=== PATIENT | male | born 1980 | race Caucasian/White ===

== ENCOUNTER → 2019-06-28 | Outpatient (CLI) | payer BC ==
[~2019-06-28] MED LIST: ACET325 PO; COLCRYS0.6 MG PO; CYCL10 PO; DIAZ5 PO; HYDACE5 PO; HYDACE7.5 PO; Indomethacin50 MG PO; NAPR500 PO; OXYACE5T PO; Percocet 5-3251 EACH PO; RXHYDACE PO; RXOXYACE PO
[2019-06-28 13:04] LABS: BASOPHILS ABSOLUTE AUTO 0.06 K/mm3 (0.00-0.23); BASOPHILS PERCENT AUTO 1 % (0-2); EOSINOPHILS ABSOLUTE AUTO 0.16 K/mm3 (0.00-0.68); EOSINOPHILS PERCENT AUTO 2 % (0-6); Hematocrit 43.5 % (37.0-53.0); Hemoglobin 14.6 g/dL (13.5-17.5); IMMATURE GRAN ABSOLUTE AUTO 0.02 K/mm3 (0.00-0.10); IMMATURE GRAN PERCENT AUTO 0 % (0-1); LYMPHOCYTES ABSOLUTE AUTO 2.04 K/mm3 (0.84-5.20); LYMPHOCYTES PERCENT AUTO 30 % (21-46); MONOCYTES ABSOLUTE AUTO 0.68 K/mm3 (0.16-1.47); MONOCYTES PERCENT AUTO 10 % (4-13); Mean Corpuscular HGB 29.6 pg (26.0-34.0); Mean Corpuscular HGB Conc 33.6 g/dL (31.5-36.5); Mean Corpuscular Volume 88 fL (80-100); Mean Platelet Volume 10.5 fL (9.1-12.4); NEUTROPHILS ABSOLUTE AUTO 3.87 K/mm3 (1.96-9.15); NEUTROPHILS PERCENT AUTO 57 % (41-73); Platelet Count 200 K/mm3 (150-400); RDW Coefficient Variation 12.8 % (11.7-14.2); RDW Standard Deviation 41.1 fL (35.1-46.3); Red Blood Cell Count 4.93 M/mm3 (4.30-5.90); White Blood Cell Count 6.83 K/mm3 (4.00-11.30)
[2019-06-28 13:16] LABS: Alanine Aminotransfer (ALT/SGP 33 U/L (12-78); Albumin, Blood 3.6 g/dL (3.4-5.0); Albumin/Globulin Ratio 0.9 (0.8-1.8); Alk Phos 78 U/L (40-126); Anion Gap 11 mmol/L (6-16); Aspartate Aminotrans (AST/SGOT 26 U/L (12-37); Blood Urea Nitrogen 12 mg/dL (8-24); Bun/Creatinine Ratio 11.2 (12.0-20.0); CO2, Blood 25 mmol/L (21-32); Calcium, Blood 8.8 mg/dL (8.5-10.1); Chloride, Blood 107 mmol/L (98-108); Creatinine, Blood 1.07 mg/dL (0.60-1.20); Globulin, Blood 4.1 g/dL (2.2-4.0); Glomerular Filtration Rate >60 (60-); Glucose, Blood 111 mg/dL (70-99); Potassium, Blood 4.1 mmol/L (3.5-5.5); Sodium, Blood 143 mmol/L (136-145); Total Protein, Blood 7.7 g/dL (6.4-8.2)
== END | disposition home or self-care (01) ==
LOC: LAB EV 13:01 → LAB SHORT 13:01
PROVIDERS: Physician Assistant
DX: R03.0 Elevated blood-pressure reading, without diagnosis of hypertension (principal)
CPT/HCPCS: 80053; 85025

== ENCOUNTER 2023-08-01 15:16 | Inpatient (IN) | payer BC ==
[~2023-08-01] VITALS: Ht 185.4 cm; Wt 119.2 kg
[~2023-08-01 15:16] MED LIST changes: -IBUP200 PO
[2023-08-01] MEDS ORDERED: IBUP200 PO (15:29)
[2023-08-01 16:59] LABS: Anti-Xa UFH, PHA Monitoring <0.10 IU/mL; International Normalized Ratio 0.98; Prothrombin Time Results 10.3 Sec (9.7-11.5)
--- NOTE | 2023-08-01 18:15 | NUR ---
ARRIVAL TO PCU: Report recieved from Lety BROOKE RN. Patient arrived to PCU 02 via gurney and was able to ambulate to the bathroom IND. He is alert and oriented x4. He denies CP or Pressure at this time. HRR, SR in the 60s. His blood pressure is elevated 160s/100s, 10mg Hydralazine IV given at this time. LS CTA , Biox WNL on RA. BT+. PPP. Patient C/O SWIFT, given Fentanyl 25 mcg IV at this time. Patient denies other needs at this time. Call light in reach.
--- NOTE | 2023-08-01 19:32 | NUR ---
Report given to Moisés lambert RN.
[2023-08-01 20:49] VITALS: BP 165/98
[2023-08-02] VITALS (15 sets, daily range): BP systolic 61–171; BP diastolic 57–106
--- NOTE | 2023-08-02 00:42 | NUR ---
PT ALERT AND ORIENTED X 4, COOPERATIVE WITH CARE AND ABLE TO MAKE NEEDS KNOWN. ON RA AND MAINTAINING 02 SATURATION ABOVE 92%. PT DENIES SOB. HR SR 60'S-70'S, PT HAS DENIED CHEST PAIN/PRESSURE/DIZZINESS ENTIRE SHIFT SO FAR. NO EDEMA PRESENT. ALL PULSES PRESENT AND STRONG. PT USES URINAL INDEPENDENTLY. PT WAS EDUCATED ON CALLING BEFORE GETTING UP HE IS ON A HEPARIN DRIP AND FALL RISK DUE TO CORDS/LINES, PT STATED UNDERSTANDING. PT HAS REPORTED HEADACHE THIS SHIFT AND MEDICATED PER EMAR, PT WAS ADMINISTERED NITROGLYCERIN IN ER. BP ELEVATED, PT HAS HX OF ELEVATED BP, MEDICATED PER EMAR, MD AWARE OF ELEVATED BP. TROPONIN LEVELS HAVE BEEN TRENDING UP SINCE ADMISSION, TROPONIN LEVELS DRAWN EVERY 2 HOURS, MD NOTIFIED OF EACH RESULT. PT IS RESTING IN BED WITH LIGHTS AND TV OFF, CALL LIGHT WITHIN REACH.
[2023-08-02 05:20] LABS: Hematocrit 45.8 % (37.0-53.0); Hemoglobin 15.3 g/dL (13.5-17.5); Mean Platelet Volume 10.6 fL (9.1-12.4); Platelet Count 177 K/mm3 (150-400)
[2023-08-02 06:01] LABS: CHOL/HDL RATIO 6.4; Cholesterol 193 mg/dL (50-200); HDL Cholesterol 30 mg/dL (>39); LDL/HDL RATIO 3.7; Low Density Lipoprotein Chol 110 mg/dL (0-110); Triglycerides 267 mg/dL (30-160); Very Low Density Lipoprot Chol 53 mg/dL (6-32)
--- NOTE | 2023-08-02 06:42 | NUR ---
SHIFT SUMMARY PT CONTINUES TO BE ALERT AND ORIENTED X 4, COOPERATIVE WITH CARE AND ABLE TO MAKE NEEDS KNOWN. PT STILL ON RA AND MAINTAINING 02 SATURATION ABOVE 92%, HE HAS DENIED SOB ALL SHIFT. HR SR 70'S, BP ELEVATED AND MEDICATED PER EMAR, MD AWARE OF ELEVATED BP, PT HAS DENIED CHEST PAIN/PRESSURE/DIZZINESS ALL SHIFT. PT HAS HAD A HEADACHE ALL SHIFT & MEDICATED PER EMAR. OF NOW PT REPORTS HEADACHE IS 3/10 AND HE DOESN'T FEEL THAT HE NEEDS ANYMORE PAIN MEDS TO CONTROL IT. AROUND 0400 PT WOKE UP AND SAID HE WAS NAUSEOUS, MEDICATED PER EMAR AND HE HASN'T COMPLAINED OF NAUSEA SINCE. PT ON HEPARIN DRIP PER EMAR. PT CURRENTLY UP IN ROOM WITH PASSENGER CONDUCTOR TAKING A SHOWER AND GETTING READY FOR THE DAY, PT TOLERATING WELL. AT BEGINNING OF SHIFT PT WAS EDUCATED TO USE CALL LIGHT SO WE COULD ASSIST HIM WHILE HE'S UP IN ROOM, PT CALLS APPROPRIATELY. PT HAS BEEN NPO SINCE MIDNIGHT AND HE IS DUE TO HAVE CARDIOLOGY CONSULT TODAY. PT BACK RESTING IN BED, CALL LIGHT WITHIN REACH.
--- NOTE | 2023-08-02 09:42 | NUR ---
CARE ASSUMPTION this rn assumed care at 0700. blood pressure hypertensive and received medication per emar. aware. tele sr. patient reports a headache rated at 8, and received medication per emar, and did not have relief. patient informed md and additional medication order that this rn gave before patient left for angio approx 0920. dreiling in room this am and discussed having and angio and the interventions and options depending on what they find. patient verbalized understanding. md christian in to see patient this am and discussed plan of care. patient is alert and oriented x4. perrla. patient reports no shortness of breath. see shift assessment for further detials. plan of care is up to date.
--- NOTE | 2023-08-02 10:58 | NUR ---
BACK FROM ANGIO patient returned from angio approx 1015. patient is to be transferd to [facility] for bypass surgery. patient is aware and family is currently at bedside. patient has a right radial site that is soft nontender no hematoma. patient has tr band in placed and was inflated at 1002. will start to deflate at 1202 based off the parameters from the order.
--- NOTE | 2023-08-02 17:12 | NUR ---
shift summary no acute changes throughout the shift. patient tr band is full recovered from the right radial site, there was a small ozz when removing the last 3 cc of air, this rn reinflated with 3cc, waited 30 mins and then removed the last 3cc with no ozzing. heparin drip restarted at rate of 15u/kg/hr. patient right radial site is soft nontender and no hematoma. this rn gave report to felicita villalba at [facility]. patient is set to leave at 1730. is in room and is aware and has patient new room number [id number]. taking patient belongings that he does not need.
--- NOTE | 2023-08-02 17:59 | NUR ---
LEFT UNIT patient left at approx 1730.
== END 2023-08-02 18:00 | disposition short-term general hospital (02) | DRG 251 ==
LOC: ER 15:16 → PCU 16:58
PROVIDERS: Student in an Organized Health Care Education/Training Program; ADMIT Internal Medicine
PROC: 02703ZZ Dilation of Coronary Artery, One Artery, Percutaneous Approach (ICD-10-PCS; principal; 2023-08-02)
PROC: B2111ZZ Fluoroscopy of Multiple Coronary Arteries using Low Osmolar Contrast (ICD-10-PCS; 2023-08-02)
DX: I21.4 Non-ST elevation (NSTEMI) myocardial infarction (principal); I25.10 Atherosclerotic heart disease of native coronary artery without angina pectoris; I10 Essential (primary) hypertension; F17.220 Nicotine dependence, chewing tobacco, uncomplicated; R73.9 Hyperglycemia, unspecified; E78.5 Hyperlipidemia, unspecified; Z82.49 Family history of ischemic heart disease and other diseases of the circulatory system; Z88.2 Allergy status to sulfonamides
CPT/HCPCS: 36415; 76937; 80061; 84484; 85014; 85018; 85049; 85347; 85520; 85610; 85730; 92920; 93005; 93010; 93454; 96365; 96375; 96376; 99152; 99153; 99285-25; A9270; C1725; C1769; C1887; C1894; G0378; J0360; J1644; J2250; J2270; J2405; J3010; J3246; J7030; J7050; Q9967

== ENCOUNTER → 2023-08-01 | Outpatient (CLI) | payer BC ==
[~2023-08-01] MED LIST changes: +IBUP200 PO
[2023-08-01 14:05] LABS: BASOPHILS ABSOLUTE AUTO 0.07 K/mm3 (0.00-0.23); BASOPHILS PERCENT AUTO 1 % (0-2); EOSINOPHILS ABSOLUTE AUTO 0.16 K/mm3 (0.00-0.68); EOSINOPHILS PERCENT AUTO 2 % (0-6); Hematocrit 46.5 % (37.0-53.0); Hemoglobin 16.2 g/dL (13.5-17.5); IMMATURE GRAN ABSOLUTE AUTO 0.02 K/mm3 (0.00-0.10); IMMATURE GRAN PERCENT AUTO 0 % (0-1); LYMPHOCYTES PERCENT AUTO 31 % (21-46); MONOCYTES ABSOLUTE AUTO 0.66 K/mm3 (0.16-1.47); MONOCYTES PERCENT AUTO 8 % (4-13); Mean Corpuscular HGB 29.8 pg (26.0-34.0); Mean Corpuscular HGB Conc 34.8 g/dL (31.5-36.5); Mean Corpuscular Volume 86 fL (80-100); Mean Platelet Volume 10.4 fL (9.1-12.4); NEUTROPHILS ABSOLUTE AUTO 4.56 K/mm3 (1.96-9.15); NEUTROPHILS PERCENT AUTO 58 % (41-73); Platelet Count 182 K/mm3 (150-400); RDW Coefficient Variation 12.2 % (11.7-14.2); RDW Standard Deviation 37.2 fL (35.1-46.3); Red Blood Cell Count 5.44 M/mm3 (4.30-5.90); White Blood Cell Count 7.87 K/mm3 (4.00-11.30)
[2023-08-01 14:29] LABS: Albumin/Globulin Ratio 1.1 (0.8-1.8); Bilirubin, Total 1.1 mg/dL (0.1-1.0); Bun/Creatinine Ratio 14.6 (12.0-20.0); Calcium, Blood 8.9 mg/dL (8.5-10.1); Creatinine, Blood 1.03 mg/dL (0.60-1.20); Globulin, Blood 3.6 g/dL (2.2-4.0); Potassium, Blood 3.9 mmol/L (3.5-5.5); Total Protein, Blood 7.6 g/dL (6.4-8.2)
== END | disposition home or self-care (01) ==
LOC: LAB SHORT 13:58 → LAB 13:58
PROVIDERS: Emergency Medicine
DX: R07.9 Chest pain, unspecified (principal)
CPT/HCPCS: 80053; 83690; 83880; 84484; 85025

== ENCOUNTER 2023-08-12 10:09 | Emergency (ER) | payer BC ==
[~2023-08-12] VITALS: Ht 185.4 cm; Wt 117.9 kg
[~2023-08-12 10:09] MED LIST changes: +IBUP200 PO
[2023-08-12] MEDS ORDERED: ACET500 PO (11:03)
[2023-08-12] MEDS ORDERED: BACL10 PO (11:05)
[2023-08-12] MEDS ORDERED: Aspir 8181 MG PO (11:05)
[2023-08-12] MEDS ORDERED: ATOR40TA PO (11:05)
[2023-08-12] MEDS ORDERED: COLCHICINE0.6 MG PO (11:06)
[2023-08-12] MEDS ORDERED: Isosorbide Mono30 MG PO (11:08)
[2023-08-12] MEDS ORDERED: METO50 PO (11:09)
[2023-08-12] MEDS ORDERED: LOSA25 PO (11:09)
[2023-08-12] MEDS ORDERED: OXYC5 PO (11:09)
[2023-08-12] MEDS ORDERED: SENN187 PO (11:10)
[2023-08-12 11:27] LABS: BASOPHILS ABSOLUTE AUTO 0.07 K/mm3 (0.00-0.23); BASOPHILS PERCENT AUTO 1 % (0-2); EOSINOPHILS ABSOLUTE AUTO 0.13 K/mm3 (0.00-0.68); EOSINOPHILS PERCENT AUTO 1 % (0-6); Hemoglobin 11.9 g/dL (13.5-17.5); IMMATURE GRAN PERCENT AUTO 1 % (0-1); LYMPHOCYTES ABSOLUTE AUTO 1.47 K/mm3 (0.84-5.20); LYMPHOCYTES PERCENT AUTO 14 % (21-46); MONOCYTES ABSOLUTE AUTO 0.76 K/mm3 (0.16-1.47); MONOCYTES PERCENT AUTO 7 % (4-13); Mean Corpuscular HGB 29.4 pg (26.0-34.0); Mean Corpuscular HGB Conc 33.1 g/dL (31.5-36.5); Mean Corpuscular Volume 89 fL (80-100); NEUTROPHILS ABSOLUTE AUTO 8.32 K/mm3 (1.96-9.15); NEUTROPHILS PERCENT AUTO 77 % (41-73); Platelet Count 293 K/mm3 (150-400); RDW Coefficient Variation 12.9 % (11.7-14.2); RDW Standard Deviation 41.8 fL (35.1-46.3); Red Blood Cell Count 4.05 M/mm3 (4.30-5.90); White Blood Cell Count 10.85 K/mm3 (4.00-11.30)
[2023-08-12 11:52] LABS: Albumin, Blood 3.1 g/dL (3.4-5.0); Albumin/Globulin Ratio 0.8 (0.8-1.8); Bilirubin, Total 0.9 mg/dL (0.1-1.0); Bun/Creatinine Ratio 23.4 (12.0-20.0); Calcium, Blood 8.8 mg/dL (8.5-10.1); Creatinine, Blood 1.11 mg/dL (0.60-1.20); Potassium, Blood 4.9 mmol/L (3.5-5.5); Total Protein, Blood 7.1 g/dL (6.4-8.2)
[2023-08-12 14:18] VITALS: BP 116/83
== END 2023-08-12 16:33 | disposition home or self-care (01) ==
LOC: ER 10:09
PROVIDERS: Emergency Medicine
DX: R55 Syncope and collapse (principal); I25.10 Atherosclerotic heart disease of native coronary artery without angina pectoris; I10 Essential (primary) hypertension; E11.9 Type 2 diabetes mellitus without complications; Z95.1 Presence of aortocoronary bypass graft; Z88.2 Allergy status to sulfonamides; Z79.82 Long term (current) use of aspirin; Z79.899 Other long term (current) drug therapy
CPT/HCPCS: 36415; 71045; 80053; 85025; 93005; 93010; 93308; 93321; 96360; 99285-25; C8929; J7030; Q9957

== ENCOUNTER 2025-04-10 05:54 | Emergency (ER) | payer BC ==
[~2025-04-10] VITALS: Ht 190.5 cm; Wt 104.3 kg
[~2025-04-10 05:54] MED LIST changes: +ACET500 PO; +ATOR40TA PO; +Aspir 8181 MG PO; +BACL10 PO; +COLCHICINE0.6 MG PO; +Isosorbide Mono30 MG PO; +LOSA25 PO; +METO50 PO; +OXYC5 PO; +SENN187 PO
[2025-04-10] MEDS ORDERED: Dexamethasone Sod Phos 10 MG/ML 1ML VIAL IV ONE (06:15)
[2025-04-10] MEDS ORDERED: Ketorolac Tromethamine 30mg Vial IV ONE (06:15)
[2025-04-10] MEDS ORDERED: Diazepam 5 MG / ML 2ML SYR IV ONE (06:25)
[2025-04-10 07:41] VITALS: BP 132/95
[2025-04-10] MEDS ORDERED: IBUP800 PO (07:47)
[2025-04-10] MEDS ORDERED: CYCL10 PO (07:47)
[2025-04-10] MEDS ORDERED: LIDO700A20 TOP (07:47)
== END 2025-04-10 07:58 | disposition home or self-care (01) ==
LOC: ER 05:54
DX: S39.012A Strain of muscle, fascia and tendon of lower back, initial encounter (principal); M62.830 Muscle spasm of back; E11.9 Type 2 diabetes mellitus without complications; I10 Essential (primary) hypertension; X50.9XXA Other and unspecified overexertion or strenuous movements or postures, initial encounter; Z79.82 Long term (current) use of aspirin; Z79.899 Other long term (current) drug therapy; Z88.2 Allergy status to sulfonamides
CPT/HCPCS: 72100; A9270; J1100; J1885; J3360

== ENCOUNTER 2025-08-05 03:29 | Inpatient (IN) | payer BC ==
[~2025-08-05] VITALS: Ht 185.4 cm; Wt 108.2 kg
[~2025-08-05 03:29] MED LIST changes: +IBUP800 PO; +LIDO700A20 TOP
[2025-08-05] MEDS ORDERED: MOUNJARO7.5 MG/0.5 SQ (03:51)
[2025-08-05] MEDS ORDERED: PREGABALIN100 MG PO (03:52)
[2025-08-05] MEDS ORDERED: LISINOPRIL 30 MG (03:52)
[2025-08-05 04:43] LABS: BASOPHILS ABSOLUTE AUTO 0.06 K/mm3 (0.00-0.23); BASOPHILS PERCENT AUTO 1 % (0-2); EOSINOPHILS ABSOLUTE AUTO 0.08 K/mm3 (0.00-0.68); EOSINOPHILS PERCENT AUTO 1 % (0-6); Hematocrit 48.1 % (37.0-53.0); Hemoglobin 16.1 g/dL (13.5-17.5); IMMATURE GRAN ABSOLUTE AUTO 0.04 K/mm3 (0.00-0.10); IMMATURE GRAN PERCENT AUTO 0 % (0-1); LYMPHOCYTES ABSOLUTE AUTO 1.70 K/mm3 (0.84-5.20); LYMPHOCYTES PERCENT AUTO 17 % (21-46); MONOCYTES ABSOLUTE AUTO 0.78 K/mm3 (0.16-1.47); MONOCYTES PERCENT AUTO 8 % (4-13); Mean Corpuscular HGB Conc 33.5 g/dL (31.5-36.5); Mean Corpuscular Volume 90 fL (80-100); NEUTROPHILS ABSOLUTE AUTO 7.21 K/mm3 (1.96-9.15); NEUTROPHILS PERCENT AUTO 73 % (41-73); NRBC ABSOLUTE 0.00 K/mm3 (0.00-0.02); NRBC Auto 0.0 /100 WBC (0.0-0.2); Platelet Count 151 K/mm3 (150-400); RDW Coefficient Variation 11.8 % (11.7-14.2); RDW Standard Deviation 38.8 fL (35.1-46.3)
[2025-08-05 05:01] LABS: Alanine Aminotransfer (ALT/SGP 30.0 U/L (12-78); Albumin, Blood 4.0 g/dL (3.4-5.0); Albumin/Globulin Ratio 1.3 (0.8-1.8); Anion Gap 10.0 mmol/L (3-11); Aspartate Aminotrans (AST/SGOT 39.0 U/L (12-37); Bilirubin, Total 1.4 mg/dL (0.1-1.0); Blood Urea Nitrogen 19.0 mg/dL (8-24); CO2, Blood 25.0 mmol/L (21-32); Calcium, Blood 9.1 mg/dL (8.5-10.1); Chloride, Blood 108.0 mmol/L (98-108); Creatinine, Blood 0.93 mg/dL (0.60-1.20); Globulin, Blood 3.1 g/dL (2.2-4.0); Glucose, Blood 88.0 mg/dL (70-99); Potassium, Blood 4.0 mmol/L (3.5-5.5); Sodium, Blood 139.0 mmol/L (136-145); Total Protein, Blood 7.1 g/dL (6.4-8.2)
[2025-08-05] MEDS ORDERED: Ondansetron HCl 2 MG / ML 2ML Vial IV PRN (06:20)
[2025-08-05] MEDS ORDERED: FLU VACC TS2025-26(6MOS UP)/PF 45 MCG/0.5 ML SYRINGE IM SCH (06:20)
[2025-08-05] MEDS ORDERED: Dose Adjust by Pharmacy XX STA ×2 (06:27→14:54)
[2025-08-05] MEDS ORDERED: Heparin Sodium 5000 Units/ML 1ML MDV IV ONE (06:30)
[2025-08-05] MEDS ORDERED: Heparin Sodium,Porcine/0.5 NS 500 ML IV SCH (06:30)
[2025-08-05] MEDS ORDERED: NS 1,000 ML IV SCH (07:00)
[2025-08-05 07:21] LABS: Anti-Xa UFH, PHA Monitoring <0.10 IU/mL; Prothrombin Time Results 11.4 Sec (9.7-11.5)
[2025-08-05] MEDS ORDERED: Insulin Human Lispro 100 Units/ML 3ML Syringe SC SCH (07:30)
[2025-08-05 08:15] LABS: CHOL/HDL RATIO 5.9; Cholesterol 200 mg/dL (50-200); HDL Cholesterol 34 mg/dL (>39); LDL/HDL RATIO 3.9; Low Density Lipoprotein Chol 131 mg/dL (0-110); Triglycerides 174 mg/dL (30-160); Very Low Density Lipoprot Chol 34 mg/dL (6-32)
[2025-08-05 09:30] VITALS: BP 124/81
[2025-08-05 11:35] VITALS: BP 122/83
[2025-08-05] MEDS ORDERED: NS 250 ML IV ONE (15:17)
[2025-08-05] MEDS ORDERED: Heparin Sodium 1000 Units/ML 10ML MDV ONE (15:17)
[2025-08-05] MEDS ORDERED: NS 1,000 ML IV ONE ×2 (15:17→15:39)
[2025-08-05] MEDS ORDERED: Midazolam HCl 1MG / ML 2ML Vial ONE (15:39)
[2025-08-05] MEDS ORDERED: FentaNYL Citrate 50 MCG/ML 2 ML Injection ONE (15:39)
[2025-08-05 16:34] VITALS: BP 118/74
[2025-08-05] MEDS ORDERED: NS 500 ML IV ONE (17:00)
--- NOTE | 2025-08-05 18:11 | NUR ---
SHIFT SUMMARY: PT BROUGHT IN FROM ED VIA STRETCHER, AWAKE, COHERENT, ATTACHED TO MANAGER SAFE, ON ROOM AIR. WITH ONGOING IV DRIP OF HEPARIN AND PNSS, IV ACCESS ON BOTH ARMS. PT WAS ABLE TO WALK FROM OUTSIDE OF ROOM TO HIS BED IN PCU 6. DENIES CHEST PAIN OR SHORTNESS OF BREATH. BEDSIDE 2DECHO WAS DONE AND PT WAS SEEN BY AIRLINE PILOT. HE WAS BROUGHT TO [facility] FOR ANGIOGRAPHY AND WAS BROUGHT IN BACK TO PCU AFTER THE PROCEDURE. WITH PUNCTURE SITE ON RIGHT GROIN, NO HEMATOMA NOTED. INSTRUCTED PT TO STAY FLAT FOR AN HOUR AND HAVE RIGHT LEG STRAIGHT POSSIBLE. PT ACKNOWLEDGED. DINNER WAS PROVIDED AND PT WAS SLOWLY ELEVATING THE HEAD OF THE BED. WILL ENDORSE TO NEXT NURSE ON DUTY.
[2025-08-05 20:02] VITALS: BP 132/81
[2025-08-05 23:44] VITALS: BP 111/70
[2025-08-06] VITALS (7 sets, daily range): BP systolic 105–128; BP diastolic 71–85
[2025-08-06] MEDS ORDERED: Dose Adjust by Pharmacy XX STA ×3 (00:47→13:54)
--- NOTE | 2025-08-06 06:03 | NUR ---
SHIFT SUMMARY PATIENT A/OX 4, USES CALL LIGHT APPROPRIATELY AND IS COOPERATIVE WITH CARE. SINUS RHYTHM HR 70s, BP STABLE. DENIES CHEST PAIN OR PRESSURE. SATS MAINTAINED >95% ON ROOM AIR. PATIENT USES URINAL AT BEDSIDE. SBA FOR LINE MANAGEMENT. PUNCTURE SITE RIGHT GROIN IS WITHOUT SWELLING, BRUISING OR BLEEDING. PATIENT ENDORSES PAIN THAT IS WORSE AFTER ACTIVITY, TREATED PER EMAR. PATIENT BELIEVES SOME OF THE PAIN IS BECAUSE HE IS NOT RECEIVING CORRECT DOSE OF PREGABALIN, CALL PLACED TO FREELANCE ART DIRECTOR, RECEIVED VERBAL ORDER TO ADJUST DOSE TO 100 MG BID. HEPARIN RUNNING AT 16 UNITS/KG/HR. NO ACUTE EVENTS THIS SHIFT. PATIENT RESTING COMFORTABLY IN ROOM. BED LOCKED IN LOWEST POSITION AND CALL LIGHT WITHIN REACH.
[2025-08-06 07:32] LABS: BASOPHILS ABSOLUTE AUTO 0.07 K/mm3 (0.00-0.23); BASOPHILS PERCENT AUTO 1 % (0-2); EOSINOPHILS ABSOLUTE AUTO 0.08 K/mm3 (0.00-0.68); EOSINOPHILS PERCENT AUTO 1 % (0-6); Hematocrit 45.2 % (37.0-53.0); Hemoglobin 15.1 g/dL (13.5-17.5); IMMATURE GRAN ABSOLUTE AUTO 0.02 K/mm3 (0.00-0.10); IMMATURE GRAN PERCENT AUTO 0 % (0-1); LYMPHOCYTES ABSOLUTE AUTO 1.37 K/mm3 (0.84-5.20); LYMPHOCYTES PERCENT AUTO 19 % (21-46); MONOCYTES ABSOLUTE AUTO 0.65 K/mm3 (0.16-1.47); MONOCYTES PERCENT AUTO 9 % (4-13); Mean Corpuscular HGB Conc 33.4 g/dL (31.5-36.5); Mean Corpuscular Volume 90 fL (80-100); NEUTROPHILS ABSOLUTE AUTO 5.07 K/mm3 (1.96-9.15); NEUTROPHILS PERCENT AUTO 70 % (41-73); NRBC ABSOLUTE 0.00 K/mm3 (0.00-0.02); NRBC Auto 0.0 /100 WBC (0.0-0.2); Platelet Count 134 K/mm3 (150-400); RDW Coefficient Variation 12.0 % (11.7-14.2); RDW Standard Deviation 40.0 fL (35.1-46.3)
[2025-08-06 08:02] LABS: Alanine Aminotransfer (ALT/SGP 24.0 U/L (12-78); Albumin, Blood 3.6 g/dL (3.4-5.0); Albumin/Globulin Ratio 1.1 (0.8-1.8); Anion Gap 8.0 mmol/L (3-11); Aspartate Aminotrans (AST/SGOT 25.0 U/L (12-37); Bilirubin, Total 1.5 mg/dL (0.1-1.0); Blood Urea Nitrogen 14.0 mg/dL (8-24); CO2, Blood 23.0 mmol/L (21-32); Calcium, Blood 8.8 mg/dL (8.5-10.1); Chloride, Blood 110.0 mmol/L (98-108); Creatinine, Blood 0.94 mg/dL (0.60-1.20); Globulin, Blood 3.2 g/dL (2.2-4.0); Glucose, Blood 89.0 mg/dL (70-99); Potassium, Blood 4.0 mmol/L (3.5-5.5); Sodium, Blood 137.0 mmol/L (136-145); Total Protein, Blood 6.8 g/dL (6.4-8.2)
[2025-08-06] MEDS ORDERED: Prinivil10 MG PO (08:04)
[2025-08-06] MEDS ORDERED: METO25ER PO (08:04)
--- NOTE | 2025-08-06 16:41 | NUR ---
SHIFT/TRANSFERRED NOTE: PATIENT MEDICATED FOR R GROIN PAIN PER EMAR c GOOD EFFECT. PATIENT DENIES CP/PRESSURE, SOB, N/V AND DIZZINESS. PATIENT HAS HAD NO EVEMNT ON TELE, SR IN 70'S. PATIENT ON HEPARIN GTT AT 16 U/KG/HR-29.1MLS/HR-RATE CONTROLLED BY PHARMACIST. PATIENT RECEIVED SCHEDULED MEDS PER EMAR. VITAL SIGNS REVIEWED. PATIENT HAS HAD NO COMPLAINTS OR DENIES NEW CONCERN THIS SHIFT. PATIENT TRANSFERRED TO SURGICAL UNIT RM 224. TR GIVEN TO JANKI FRAUSTO. ALL PERSONAL BELONGINGS WERE SENT c PATIENT. PATIENT LEFT THE ROOM AT 1640, TRANSPORTED VIA W/C BY SHANNAN ROBERTS.
--- NOTE | 2025-08-06 18:50 | NUR ---
ASSUMPTION OF CARE: PATIENT ARRIVED TO ROOM 224 FROM ROOM PCU 06. UPON ENTERING ROOM, [id number] WAS NOTED TO BE SELF TRANSFERING FROM W/C TO BED. GAIT INTACT ON OBSERVATION. MR. LAWRENCE REMAINS ON TELE RUNNING NSR 80'S. HEPRIN CONTINUES TO INFUSE AT 29.1. NO NEW OR ACUTE CHANGES SENSE COMING TO SURIGAL FLOOR.
[2025-08-07 04:00] VITALS: BP 109/76
--- NOTE | 2025-08-07 06:12 | NUR ---
SHIFT SUMMARY NO ACUTE CHANGES TO REPORT OVERNIGHT. PT HAS RESTED T/O THE NIGHT. PT REPORTS L SHOULDER PAIN. HE REPORTS SIDE EFFECT OF CARDIAC MEDICATION, AND HE HAS HAD THIS PAIN BEFORE IN THE PAST. PT REPORTS THAT HE SPOKE WITH THE DRDayne ABOUT IT ALREADY. PROVIDER JACQUELINE CALZADA NP NOTIFIED OF L SHOULDER PAIN AND ULTRAM ORDERED IN ADDITION FOR PAIN MANAGEMENT. PT DENIES CHEST PAIN OR SOB. RESP E/U ON RA. SKIN DRY. VITALS STABLE. NO CHANGES ON TELE. HEPARIN GTT INFUSING. BED IN LOWEST POSITION, CALL LIGHT WITHIN REACH.
[2025-08-07 06:23] LABS: BASOPHILS ABSOLUTE AUTO 0.07 K/mm3 (0.00-0.23); BASOPHILS PERCENT AUTO 1 % (0-2); EOSINOPHILS ABSOLUTE AUTO 0.12 K/mm3 (0.00-0.68); EOSINOPHILS PERCENT AUTO 2 % (0-6); Hematocrit 43.7 % (37.0-53.0); Hemoglobin 14.6 g/dL (13.5-17.5); IMMATURE GRAN ABSOLUTE AUTO 0.02 K/mm3 (0.00-0.10); IMMATURE GRAN PERCENT AUTO 0 % (0-1); LYMPHOCYTES ABSOLUTE AUTO 1.65 K/mm3 (0.84-5.20); LYMPHOCYTES PERCENT AUTO 26 % (21-46); MONOCYTES ABSOLUTE AUTO 0.65 K/mm3 (0.16-1.47); MONOCYTES PERCENT AUTO 10 % (4-13); Mean Corpuscular HGB Conc 33.4 g/dL (31.5-36.5); Mean Corpuscular Volume 90 fL (80-100); NEUTROPHILS ABSOLUTE AUTO 3.78 K/mm3 (1.96-9.15); NEUTROPHILS PERCENT AUTO 60 % (41-73); NRBC ABSOLUTE 0.00 K/mm3 (0.00-0.02); NRBC Auto 0.0 /100 WBC (0.0-0.2); Platelet Count 143 K/mm3 (150-400); RDW Coefficient Variation 11.9 % (11.7-14.2); RDW Standard Deviation 39.2 fL (35.1-46.3)
[2025-08-07] MEDS ORDERED: Dose Adjust by Pharmacy XX STA (06:36)
[2025-08-07 07:48] VITALS: BP 106/62
[2025-08-07] MEDS ORDERED: ASPI81CH PO (11:39)
[2025-08-07] MEDS ORDERED: ACET325 PO (11:39)
[2025-08-07] MEDS ORDERED: ATOR10 PO (11:51)
[2025-08-07] MEDS ORDERED: CLOP75 PO (11:52)
--- NOTE | 2025-08-07 13:04 | NUR ---
SHIFT / DISCHARGE SUMMARY: PATIENT A+O X4 AND HAS BEEN ABLE TO MAKE NEEDS KNOWN THROUGHOUT THIS SHIFT. PATIENT WAS DISCONTINUED OFF OF HEPARIN PRIOR TO DISCHARGE. THIS NURSE DIRECTED MR. LAWRENCE TO FOLLOW UP WITH PCP AND CARDIOLOGY. MR. LAWRENCE VERBALIZED UNDERSTANDING. BELONGINGS PROVIDED BACK TO PATIENT. IV REMOVED. THIS PATIENT WAS WHEELED OUT WITH W/C.
== END 2025-08-07 12:48 | disposition home or self-care (01) | DRG 282 ==
LOC: ER 03:29 → PCU 03:30 → SURS 08-06 10:32 → PCU 08-06 10:33 → SURS 08-06 16:43
PROVIDERS: Emergency Medicine; Student in an Organized Health Care Education/Training Program; ADMIT Internal Medicine
PROC: B2111ZZ Fluoroscopy of Multiple Coronary Arteries using Low Osmolar Contrast (ICD-10-PCS; principal; 2025-08-05)
PROC: B2131ZZ Fluoroscopy of Multiple Coronary Artery Bypass Grafts using Low Osmolar Contrast (ICD-10-PCS; 2025-08-05)
PROC: B24BZZZ Ultrasonography of Heart with Aorta (ICD-10-PCS; 2025-08-05)
DX: I21.4 Non-ST elevation (NSTEMI) myocardial infarction (principal); I25.10 Atherosclerotic heart disease of native coronary artery without angina pectoris; I10 Essential (primary) hypertension; M10.9 Gout, unspecified; E11.40 Type 2 diabetes mellitus with diabetic neuropathy, unspecified; E80.6 Other disorders of bilirubin metabolism; E78.5 Hyperlipidemia, unspecified; I25.82 Chronic total occlusion of coronary artery; I25.2 Old myocardial infarction; Z95.1 Presence of aortocoronary bypass graft; Z99.2 Dependence on renal dialysis; Z79.899 Other long term (current) drug therapy; Z95.5 Presence of coronary angioplasty implant and graft
CPT/HCPCS: 36415; 71046; 76937; 80053; 80061; 82947; 83036; 83690; 83880; 84484; 85025; 85520; 85610; 85730; 93005; 93010; 93306; 93459; 93460; 96365; 96366; 96374; 96375; 99152; 99153; 99285-25; A9270; C1760; C1769; C1894; G0378; J1644; J2250; J2405; J3010; J7030; J7050; Q9967